=== PATIENT | male | born 1955 | race Caucasian/White ===

== ENCOUNTER 2017-10-17 07:30 | Inpatient (IN) ==
[2017-10-11 11:56] LABS: Appearance,Urine CLEAR; Bilirubin,Urine NEG (NEG); Color,Urine STRAW; Glucose,Urine (UA) NEGATIVE (NEG); Leukocyte Esterase,Urine NEG /uL (NEG); Protein,Urine NEG (NEG); Specific Gravity,Urine 1.008 (1.000-1.035); Urine Blood NEG mg/dL (<0.03); Urobilinogen,Urine NEG (NEG)
[2017-10-11 12:48] LABS: Basophils # (Auto) 0 K/mcL (0.0-0.3); Basophils % (Auto) 0.3 % (0.0-2.0); Eosinophils # (Auto) 0.2 K/mcL (0.0-0.7); Eosinophils % (Auto) 1.6 % (0.0-7.0); Granulocytes % (Auto) 36.4 % (38.0-78.0); Lymphocytes # (Auto) 5.6 K/mcL (1.5-4.8); Lymphocytes % (Auto) 57.4 % (15.5-49.0); Mean Cell Volume 93.7 fL (80.0-100.0); Mean Corpuscular HGB Conc 33.5 g/dL (31.0-36.0); Mean Corpuscular Hemoglobin 31.4 pg (26.0-34.0); Monocytes # (Auto) 0.4 K/mcL (0.1-0.9); Monocytes % (Auto) 4.3 % (1.0-12.0); Platelet Count 155 K/mcL (140-440); Red Cell Distribution Width 13.2 % (11.5-14.5)
[2017-10-11 13:35] LABS: Blood Urea Nitrogen 14 mg/dl (8-23)
[~2017-10-17 07:30] MED LIST: CELECOXIB 200 MG CAPSULE PO SCH; KETOROLAC 30 MG, ROPIVACAINE HCL/PF 49.5 ML, EPINEPHrine 0.5 MG, 0.9 % SODIUM CHLORIDE ... IV SCH; PREGABALIN 75 MG CAPSULE PO SCH; ceFAZolin 1 GM VIAL IV SCH; oxyCODONE 10 MG TAB.ER.12H PO SCH
[2017-10-17] MEDS ORDERED: ONDANSETRON 4 MG/2 ML VIAL IV ONE (10:15)
[2017-10-17] MEDS ORDERED: TRANEXAMIC ACID 1,000 MG/10 ML VIAL IV ONE (10:15)
[2017-10-17] MEDS ORDERED: PHENYLEPHRINE 10 MG/ML VIAL IV ONE (10:15)
[2017-10-17] MEDS ORDERED: ePHEDrine 50 MG/ML AMPUL IV ONE (10:15)
[2017-10-17] MEDS ORDERED: KETAMINE 100 MG/ML ML IV ONE (10:15)
[2017-10-17] MEDS ORDERED: DEXAMETHASONE 10 MG/ML VIAL IV ONE (10:15)
[2017-10-17] MEDS ORDERED: ROPIVACAINE HCL/PF 20 ML VIAL IJ ONE (10:15)
[2017-10-17] MEDS ORDERED: PROPOFOL 200 MG/20 ML VIAL IV ONE (10:15)
[2017-10-17] MEDS ORDERED: MIDAZOLAM 2 MG/2 ML VIAL IV ONE (10:15)
[2017-10-17] MEDS ORDERED: LIDOCAINE HCL/PF 100 MG/5 ML SYRINGE IV ONE (10:15)
[2017-10-17] MEDS ORDERED: PROMETHAZINE 25 MG/ML VIAL IV PRN (10:19)
[2017-10-17] MEDS ORDERED: IPRATROPIUM/ALBUTEROL 3 ML AMPUL.NEB NEB PRN (10:19)
[2017-10-17] MEDS ORDERED: NALOXONE HCL 0.4 MG/ML VIAL IV PRN (10:19)
[2017-10-17] MEDS ORDERED: fentaNYL 100 MCG/2 ML VIAL IV PRN (10:19)
[2017-10-17] MEDS ORDERED: METHOCARBAMOL 1,000 MG/10 ML VIAL IV PRN (10:19)
[2017-10-17] MEDS ORDERED: FLUMAZENIL 0.1 MG/ML ML IV PRN (10:19)
[2017-10-17] MEDS ORDERED: ACETAMINOPHEN 1,000 MG/100 ML BOTTLE IV ONE (10:19)
[2017-10-17] MEDS ORDERED: BENZOCAINE/MENTHOL 1 LOZENGE PO PRN ×2 (10:19→12:03)
[2017-10-17] MEDS ORDERED: LACTATED RINGERS 250 ML IV PRN (10:19)
[2017-10-17] MEDS ORDERED: MEPERIDINE 25 MG/ML SYRINGE IV PRN (10:19)
[2017-10-17] MEDS ORDERED: LACTATED RINGERS 1,000 ML IV SCH (10:30)
--- NOTE | 2017-10-17 12:01 | Brief Operative Note ---
Date of procedure: 10/17/17 Pre-op diagnosis: R knee osteoarthritis, retained ACL hardware Post-op diagnosis: same Procedure: Right robotic assisted total knee arthroplasty Hardware removal tibial screw Grafts/Implants: Yes ([place] Triathlon CR 6 femur, 6 tibia, 39 patella) Anesthesia: spinal, GLMA Findings: arthritis Complications: none Surgeon: Jose Alberto Moreno Roofing Applicator: Kunal Marie Estimated blood loss (cc): 30 Specimens Removed/Pathology: none sent Condition: stable Disposition: PACU
[2017-10-17] MEDS ORDERED: BISACODYL 10 MG SUPP.RECT PR PRN (12:03)
[2017-10-17] MEDS ORDERED: MAGNESIUM HYDROXIDE 30 ML ORAL.SUSP PO PRN (12:03)
[2017-10-17] MEDS ORDERED: POLYETHYLENE GLYCOL 3350 17 GM PACKET PO PRN (12:03)
[2017-10-17] MEDS ORDERED: TRANEXAMIC ACID 1,000 MG/10 ML VIAL IV SCH (12:03)
[2017-10-17] MEDS ORDERED: FLEETS ADULT ENEMA PR PRN (12:03)
[2017-10-17] MEDS ORDERED: ONDANSETRON 4 MG/2 ML VIAL IV PRN (12:03)
--- NOTE | 2017-10-17 13:13 | XRay Report ---
CLINICAL INFORMATION: Reason for Exam:Post-op total knee. COMPARISON: None. FINDINGS: Total knee prostheses is anatomically aligned no osseous normality. Soft tissues swelling as expected IMPRESSION: Negative Interpreted and Authenticated by: Dao Godinez 10/17/17
[2017-10-17] MEDS: 0.9 % SODIUM CHLORIDE 1,000 ML IV SCH (14:39)
[2017-10-17] MEDS: 0.9 % SODIUM CHLORIDE 10 ML SYRINGE IV SCH ×2 (16:39→21:07)
[2017-10-17] MEDS: KETOROLAC 30 MG/ML VIAL IV SCH ×2 (18:11→23:36)
[2017-10-17] MEDS: ceFAZolin 1 GM VIAL IV SCH (18:11)
[2017-10-17] MEDS ORDERED: SENNOSIDES 1 TABLET PO SCH (21:00)
[2017-10-17] MEDS ORDERED: ATENOLOL 50 MG TABLET PO SCH (21:00)
[2017-10-17] MEDS: HYDROcodone/APAP 10/325MG TABLET PO PRN (21:06)
[2017-10-17] MEDS: ASPIRIN 325 MG ENTERIC COATED TABLET PO SCH (21:07)
[2017-10-17] MEDS: DOCUSATE SODIUM 100 MG CAPSULE PO SCH (21:07)
[2017-10-18] MEDS: 0.9 % SODIUM CHLORIDE 1,000 ML IV SCH ×2 (00:24→09:38)
[2017-10-18] MEDS: ceFAZolin 1 GM VIAL IV SCH (01:22)
[2017-10-18] MEDS: KETOROLAC 30 MG/ML VIAL IV SCH (05:40)
[2017-10-18] MEDS: 0.9 % SODIUM CHLORIDE 10 ML SYRINGE IV SCH (05:41)
--- NOTE | 2017-10-18 07:36 | Discharge Summary ---
Providers - Providers Patient information: Note initiated : 10/18/17 at 7:34 am Service Date, if different from initiated Date: [] Patient: Adam Lopez 62 y/o M admitted on 10/17/17 for Total Knee Arthroplasty - Right Nathan. Chief Complaint: [] Discharge date: 10/18/17 Hospitalization Hospital course: Pt was admitted for R TKA; pt underwent the procedure on the day of admission and spent one night on the floor for IV pain meds, IV abx, and PT. Pt discharged post-op day 1 with ASA for DVT prophylaxis and out-pt PT orders. Will f/u at [facility] in 2 weeks. Discharge diagnosis: R knee OA Exam - Exam Clean and dry: Yes Weight bearing status: as tolerated Ortho Discharge - TKA - Patient Instructions Diet: Regular Diet Activity: activity as tolerated Total Knee Protocol: For Total Knee: Start ROM JARRDO with stationary bike or rocking chair. Work on gaining full extension of knee. Posterior dislocation precautions provided. Hip abductor strengthening and gait training instructions provided. Apply Cryocuff as instructed. Dressing Care: May shower in 2 days - Follow Up Plan Disposition: Home, Self-Care Prognosis: Good Rehab Potential: Good Overall status at discharge: patient is progressing back to baseline - Orders For Discharge Prescriptions: Aspirin [Ecotrin] 325 mg PO BID #30 tab.ec HYDROcodone/APAP 10/325MG [[place] 10-325Mg] 1 - 2 tab PO Q4HP PRN #90 tab PRN Reason: Pain Level 3-6 Pending Studies Resuscitation Status Full Code Diet Regular Diet Start SunOct 17 1206 Hydrocodone Bitart/Acetaminophen ([place] 10/325mg) 0 tab PO Q4HP PRN PRN Reason: PAIN LEVEL 3-6 Last Admin: 10/17/17 21:06 Dose: 2 tab Aspirin (Ecotrin) 325 mg PO BID [facility] Last Admin: 10/17/17 21:07 Dose: 325 mg Atenolol (Tenormin) 25 mg PO HS [facility] Last Admin: 10/17/17 21:06 Dose: 25 mg Docusate Sodium (Colace) 100 mg PO BID [facility] Last Admin: 10/17/17 21:07 Dose: 100 mg Sodium Chloride (Sodium Chloride 0.9%) 1,000 mls @ 100 mls/hr IV .Q10H [facility] Last Infusion: 10/18/17 01:00 Dose: 0 mls/hr Admin: 10/18/17 00:24 Dose: Not Given Admin: 10/17/17 14:39 Dose: 100 mls/hr Ketorolac Tromethamine (Toradol) 30 mg IV Q6 [facility] Stop: 10/19/17 12:01 Last Admin: 10/18/17 05:40 Dose: 30 mg Admin: 10/17/17 23:36 Dose: 30 mg Admin: 10/17/17 18:11 Dose: 30 mg Senna (Senokot) 2 tab PO HS [facility] Last Admin: 10/17/17 21:06 Dose: 2 tab Sodium Chloride (Saline Flush) 10 ml IV Q8 [facility] Last Admin: 10/18/17 05:41 Dose: 10 ml Admin: 10/17/17 21:07 Dose: Not Given Admin: 10/17/17 16:39 Dose: Not Given Shift Summary 10/18/17 03:45 Shift Summary by Ledy Hyatt Patient unable to sleep. States he slept during the day yesterday. Medicated for pain 6/10 with Hydrocodone 2 tabs x1 with good effect, 2/10 pain.IV on left hand saline locked. Ambulated to hallway using FWW last night with his 80 ft twice. Voids to the bathroom/urinal. Voided 300 mls PVR of 216 mls at 2351H. Right knee dressing CDI. VSS. Initialized on 10/18/17 03:45 - END OF NOTE
[2017-10-18] MEDS: ASPIRIN 325 MG ENTERIC COATED TABLET PO SCH (08:00)
[2017-10-18] MEDS: DOCUSATE SODIUM 100 MG CAPSULE PO SCH (08:00)
[2017-10-18] MEDS ORDERED: ATENOLOL 50 MG TABLET PO SCH (09:00)
[2017-10-18] MEDS ORDERED: HYDROCHLOROTHIAZIDE 12.5 MG CAPSULE PO SCH (09:00)
[2017-10-18] MEDS ORDERED: OLMESARTAN MEDOXOMIL 20 MG TABLET PO SCH (09:00)
[2017-10-18] MEDS: HYDROcodone/APAP 10/325MG TABLET PO PRN (09:34)
--- NOTE | 2017-10-18 09:58 | Operative Note ---
DATE OF OPERATION: 10/17/2017 PREOPERATIVE DIAGNOSIS: Right knee severe osteoarthritis with retained ACL tibial screw. POSTOPERATIVE DIAGNOSIS: Right knee severe osteoarthritis with retained ACL tibial screw. PROCEDURE PERFORMED: 1. Right robotic-assisted total knee arthroplasty using a [place] Triathlon size 6 cruciate retaining femoral component, size 6 tibial baseplate, 9 mm X3 tibial insert with a 39 mm patellar button. 2. Hardware removal of tibial ACL screw and sleeve. SURGEON: Jose Alberto Moreno M.D. TRAPEZE PERFORMER: Braden Marie PA-C. ANESTHESIA: Spinal plus general. DRAINS: None. SPECIMENS: Bone cuts and tibial screw and sleeve which were discarded. BLOOD LOSS: 30 mL. COMPLICATIONS: None. POSTOPERATIVE CONDITION: Stable. INDICATIONS FOR SURGERY: This is a 62-year-old male who has had remote history of anterior cruciate ligament reconstruction. He has had slowly progressive worsening pain over time. Radiographs showed severe [id number] osteoarthritis. FINDINGS AT SURGERY: As above. Post implantation showed good limb alignment, patellar tracking, and joint stability. PROCEDURE IN DETAIL: The patient had been seen preoperatively. Informed consent had been obtained after discussion of risks and benefits of surgery. Risks including, but not limited to, bleeding, possibly requiring transfusion; infection, possibly requiring implant removal, prolonged IV antibiotics; injury to nerves, blood vessels and other surrounding structures; anesthetic risks; incomplete or no resolution of symptoms; stiffness; pain; swelling; instability; DVT and pulmonary embolus risks; and the possibility of needing further revision surgery. He understood these risks and wished to proceed. Correct operative site was marked and then patient was taken to the operating room after spinal anesthesia was given. Right lower extremity was carefully prepped and draped in normal sterile fashion. A time-out was performed verifying patient name, operative site, and plan. Midline incision was made with a scalpel through skin and subcutaneous tissue and then Irrisept was irrigated. A medial parapatellar arthrotomy was made. Subperiosteal exposure was done of the anterior medial tibia and retropatellar fat pad was excised. The tibial ACL screw was removed with a screwdriver, and then the plastic sleeve was removed as well. We then placed our tibial and femoral check points. We made two stab incisions over the femur and two over the tibia and bicortical pins were placed and the arrays connected. We then checked our hip center of rotation as well as used the green probe to check our medial and lateral malleoli and double-check our checkpoints. We then used the blue probe to do our mapping. Once this was completed, we removed our osteophytes with a rongeur. We then checked our flexion- extension gaps. We ended up adjusting until we had 17 mm medial flexion- extension gap with a 16 lateral flexion gap and an 18 lateral in extension. We then used the robotic arm to make our bone cuts. Tibia was placed and externally rotated as bone coverage would allow. The tibia was prepared with the boss reamer and keel punch. We then elevated the femur and removed posterior osteophytes with a curved osteotome and curet. Femoral trial was placed and then peg holes were drilled. A 9 insert trial was placed. The knee was taken into extension. Patella was measured pre-resection at about 28 mm. We freehand resected down to 14 mm. A 39 was sized and holes were drilled. Trial was placed. We measured 26 mm with the trial. We did a limited lateral facetectomy and then checked our patellar tracking which was good. We checked our full extension. We were about 5 degrees short of full extension. We then opened implants. Trials were removed. A drill was used to drill some areas of sclerotic bone. We filled the joint with Irrisept, after a minute pulse lavaged with saline, and then used a CO2 gun to clean and dry the cancellous bone surfaces and then cemented the tibia followed by femur. Excess cement was removed. The 9 insert trial was placed. The knee was taken into extension, and the patellar button was cemented. Checkpoints were removed. We filled the joint with Irrisept and then injected pain cocktail into the pericapsular and subcutaneous tissues. We then removed our arrays and removed our tibial and femoral pins. Once cement had fully hardened, we pulse lavaged with saline and flexed the knee up. We removed the trial insert. A definitive insert was opened. We injected the posterior capsule with pain cocktail and then impacted the insert. The knee was then taken to about 45 degrees of flexion. Interrupted #2 FiberWire xvlyvn-vp-asasfh were used around the superior quadrant, interrupted #1 Vicryl ovycpq-ih-airzff were used around the inferior quadrant, running #1 Vicryl was used for patellar tendon and quad tendon. Final Irrisept irrigation was done, after a minute final pulse lavage, and then 2-0 Monocryl for subcutaneous and eliza for skin. Xeroform and sterile dressing were applied. Tourniquet was released and patient was awakened, extubated, and transferred to recovery in stable condition. SHAY:ernestina Job ID: [id number] Doc ID: [id number] Jose Alberto Moreno MD
== END 2017-10-18 11:05 | disposition home or self-care (01) | DRG 470 ==
LOC: MEDSUR 07:59
PROVIDERS: ADMIT Orthopaedic Surgery; ATTEND Orthopaedic Surgery

== ENCOUNTER 2018-11-27 04:57 | Inpatient (IN) ==
[2018-11-21 11:59] LABS: Appearance,Urine CLEAR; Bilirubin,Urine NEG (NEG); Color,Urine STRAW; Culture Indicated,Urine NO; Glucose,Urine (UA) NEGATIVE (NEG); Ketones,Urine NEG (NEG); Leukocyte Esterase,Urine NEG /uL (NEG); Nitrate,Urine NEG (NEG); Protein,Urine NEG (NEG); Specific Gravity,Urine 1.004 (1.000-1.035); Urine Blood NEG mg/dL (<0.03); Urobilinogen,Urine NEG (NEG)
[2018-11-21 12:50] LABS: Blood Urea Nitrogen 13 mg/dl (8-23); Calcium 9.3 mg/dl (8.6-10.4); Carbon Dioxide 23 mmol/L (22-30); Chloride 105 mmol/L (96-108); Glomerular Filtration Rate 79; Glucose 98 mg/dL (70-105)
[2018-11-21 12:54] LABS: Basophils # (Auto) 0 K/mcL (0.0-0.3); Basophils % (Auto) 0.2 % (0.0-2.0); Eosinophils # (Auto) 0.1 K/mcL (0.0-0.7); Eosinophils % (Auto) 0.7 % (0.0-7.0); Hematocrit 43.1 % (41.0-55.0); Hemoglobin 14.9 g/dL (13.5-16.5); Lymphocytes % (Auto) 72.2 % (15.5-49.0); Mean Cell Volume 92.7 fL (80.0-100.0); Mean Corpuscular HGB Conc 34.6 g/dL (31.0-36.0); Mean Platelet Volume 8.4 fL (7.4-10.4); Monocytes # (Auto) 0.7 K/mcL (0.1-0.9); Monocytes % (Auto) 4.9 % (1.0-12.0); Platelet Count 163 K/mcL (140-440); RBC 4.65 M/mcL (4.50-5.90); WBC 13.9 K/mcL (4.5-11.0)
[2018-11-21 14:06] LABS: INR 1.1 (0.9-1.1); Prothrombin Time 13.9 sec (11.9-14.5)
[2018-11-27] MEDS ORDERED: CELECOXIB 200 MG CAPSULE PO SCH (06:00)
[2018-11-27] MEDS ORDERED: ceFAZolin 2 GM in DEXTROSE 5% IN WATER 50 ML IV SCH (06:00)
[2018-11-27] MEDS ORDERED: PREGABALIN 75 MG CAPSULE PO SCH (06:00)
[2018-11-27] MEDS ORDERED: 0.9 % SODIUM CHLORIDE 9 ML, KETOROLAC 30 MG, ROPIVACAINE HCL/PF 49.5 ML, EPINEPHrine 0.... IJ SCH (06:00)
[2018-11-27] MEDS ORDERED: oxyCODONE 10 MG TAB.ER.12H PO SCH (06:00)
[2018-11-27] MEDS ORDERED: TRANEXAMIC ACID 1,000 MG/10 ML VIAL IV ONE (07:30)
[2018-11-27] MEDS ORDERED: KETAMINE 100 MG/ML ML IV ONE (07:30)
[2018-11-27] MEDS ORDERED: LIDOCAINE HCL/PF 100 MG/5 ML SYRINGE IV ONE (07:30)
[2018-11-27] MEDS ORDERED: PHENYLEPHRINE 10 MG/ML VIAL IV ONE (07:30)
[2018-11-27] MEDS ORDERED: ONDANSETRON 4 MG/2 ML VIAL IV ONE (07:30)
[2018-11-27] MEDS ORDERED: fentaNYL 100 MCG/2 ML VIAL IV ONE (07:30)
[2018-11-27] MEDS ORDERED: GLYCOPYRROLATE 0.2 MG/ML VIAL IV ONE (07:30)
[2018-11-27] MEDS ORDERED: ePHEDrine 50 MG/ML AMPUL IV ONE (07:30)
[2018-11-27] MEDS ORDERED: PROPOFOL 200 MG/20 ML VIAL IV ONE (07:30)
[2018-11-27] MEDS ORDERED: MIDAZOLAM 2 MG/2 ML VIAL IV ONE (07:30)
[2018-11-27] MEDS ORDERED: DEXAMETHASONE 10 MG/ML VIAL IV ONE (07:30)
[2018-11-27] MEDS ORDERED: IPRATROPIUM/ALBUTEROL 3 ML AMPUL.NEB NEB PRN (08:04)
[2018-11-27] MEDS ORDERED: FLUMAZENIL 0.1 MG/ML ML IV PRN (08:04)
[2018-11-27] MEDS ORDERED: fentaNYL 100 MCG/2 ML VIAL IV PRN (08:04)
[2018-11-27] MEDS ORDERED: NALOXONE HCL 0.4 MG/ML VIAL IV PRN (08:04)
[2018-11-27] MEDS ORDERED: BENZOCAINE/MENTHOL 1 LOZENGE PO PRN ×2 (08:04→09:19)
[2018-11-27] MEDS ORDERED: ONDANSETRON 4 MG/2 ML VIAL IV PRN ×2 (08:04→09:19)
[2018-11-27] MEDS ORDERED: LACTATED RINGERS 250 ML IV PRN (08:04)
[2018-11-27] MEDS ORDERED: METHOCARBAMOL 1,000 MG/10 ML VIAL IV PRN (08:04)
[2018-11-27] MEDS ORDERED: ACETAMINOPHEN 1,000 MG/100 ML BOTTLE IV ONE (08:04)
[2018-11-27] MEDS ORDERED: KETOROLAC 15 MG/ML VIAL IV PRN (08:04)
[2018-11-27] MEDS ORDERED: LACTATED RINGERS 1,000 ML IV SCH (08:15)
[2018-11-27] MEDS ORDERED: FLEETS ADULT ENEMA PR PRN (09:19)
[2018-11-27] MEDS ORDERED: MAGNESIUM HYDROXIDE 30 ML ORAL.SUSP PO PRN (09:19)
[2018-11-27] MEDS ORDERED: DEXTROSE 31 GM ORAL.SUSP PO PRN (09:19)
[2018-11-27] MEDS ORDERED: DEXTROSE 50% 50 ML VIAL IV PRN (09:19)
[2018-11-27] MEDS ORDERED: BISACODYL 10 MG SUPP.RECT PR PRN (09:19)
[2018-11-27] MEDS ORDERED: TRANEXAMIC ACID 1,000 MG/10 ML VIAL IV SCH (09:19)
[2018-11-27] MEDS ORDERED: POLYETHYLENE GLYCOL 3350 17 GM PACKET PO PRN (09:19)
--- NOTE | 2018-11-27 09:19 | Brief Operative Note ---
Date of procedure: 11/27/18 Pre-op diagnosis: L knee severe DJD Post-op diagnosis: same Procedure: Left robotic assisted total knee arthroplasty Grafts/Implants: Yes ([place] Triathlon CR 5 femur, 6 tibia, 11mm insert, 39 patella) Anesthesia: spinal, GLMA Findings: severe bone on bone arthritis Complications: none Surgeon: Jose Alberto Moreno Dredge Operator: Kunal Marie Estimated blood loss (cc): 30 Specimens Removed/Pathology: none sent Condition: stable Disposition: PACU
--- NOTE | 2018-11-27 10:11 | Operative Note ---
DATE OF OPERATION: 11/27/2018 PREOPERATIVE DIAGNOSIS: Left knee severe osteoarthritis. POSTOPERATIVE DIAGNOSIS: Left knee severe osteoarthritis. PROCEDURE PERFORMED: Left robotic-assisted total knee arthroplasty placing a [place] Triathlon size 5 cruciate retaining femoral component, size 6 tibial baseplate, an 11 mm X3 tibial insert with a 39 mm patellar button. SURGEON: Jose Alberto Moreno M.D. ACADEMIC COACH: Braden Marie PA-C. The PA's assistance was required for the safe and efficient completion of the entire case. This provider's expertise and technical skill were required throughout the case. The PA assisted with preoperative coordination, intraoperative retraction, wound closure, dressing and splint application, as well as postoperative documentation and care coordination. ANESTHESIA: Spinal plus general. DRAINS: None. SPECIMENS: Bone cuts which were discarded. BLOOD LOSS: 30 mL. COMPLICATIONS: None. POSTOPERATIVE CONDITION: Stable. INDICATIONS FOR SURGERY: This is a 63-year-old male who has had longstanding, progressive worsening knee pain. Radiographs showed severe qrey-[id number] osteoarthritis. FINDINGS AT SURGERY: He did have severe arthritis. Post implantation showed good limb alignment, patellar tracking, and joint stability. PROCEDURE IN DETAIL: The patient had been seen preoperatively and informed consent had been obtained after discussion of risks and benefits of surgery. Risks including, but not limited to, bleeding; infection, possibly requiring implant removal; prolonged IV antibiotics; injury to nerves, blood vessels, other surrounding structures; anesthetic risks; incomplete or no resolution of symptoms; stiffness; swelling; pain; clunking; instability; DVT and pulmonary embolus risks; and the possibility of needing further revision joint surgery. He understood and wished to proceed. Correct operative site was marked and then patient was taken to the operating room. Spinal anesthesia had been given. LMA general was then given, and the left lower extremity was carefully prepped and draped in normal sterile fashion. A time-out was performed verifying patient name, operative site, and plan. Esmarch was used to exsanguinate the extremity and tourniquet was inflated to 300 mmHg. All skin surfaces were covered with Ioban. A midline incision was made with a scalpel through skin and subcutaneous tissue. Irrisept was irrigated. A medial parapatellar arthrotomy was performed. Subperiosteal exposure was done of the anterior medial tibia. Irrisept was irrigated. Anterior horns of the menisci were removed and ACL was transected. The retropatellar fat pad was removed. Femoral and tibial checkpoints were placed. Two stab incisions were made over the femur and two over the tibia and bicortical pins placed and the arrays connected. The hip center of rotation was checked and then green probe used to identify medial and lateral malleoli, as well as double-check our checkpoints. Blue probe was used to do our mapping. We then removed osteophytes and then checked our flexion-extension gaps. We put 2 degrees of varus on the tibia and 3 on the femur. This gave us 17 mm gaps medial in both flexion and extension and lateral in flexion with a 19 mm gap in extension. We then checked our sizing. A size 6 ended up stuffing the patellofemoral joint, so we did downsize to a 5. We then went ahead and used the robotic arm to do our bone cuts. The tibia trial was placed and externally rotated as bone coverage would allow. This was a size 6. A boss reamer and keel punch were used to prepare and then a keeled tibial trial was placed. Femur was elevated, and a curved osteotome was used to remove posterior osteophytes with a curet. We then impacted the femoral trial, pinned this into place. Peg holes were drilled and a 9 insert placed. The knee was taken into extension. Patella measured 28 mm pre-resection and post-resection was 15 mm. We went ahead and sized to a 39 mm patellar button. This was medialized as much as possible and holes were drilled and then a trial placed. A lateral facetectomy was performed. We checked the patellar tracking, which was good, and so we went ahead and removed trial implants. Definitive implants were opened. We irrigated Irrisept while antibiotic cement was mixed. After a minute we pulse lavaged with saline and then a CO2 gun was used to clean and dry the cancellous bone surface. We cemented the tibia. Excess cement was removed. We cemented the femur and the excess cement was removed. A 9 insert trial was placed and the knee was taken into extension, and we cemented the patellar button. Extension checked all the way down to 0, so we went ahead and removed checkpoints. We filled the joint with Irrisept. We removed arrays and pins. After cement had fully hardened, we flexed the knee up, removed the insert trial and injected pain cocktail into the pericapsular and subcutaneous tissues. Irrisept was irrigated on the tray and then we opened an 11 mm insert. This was impacted. We then pulse lavaged the joint copiously with saline. The knee was placed in about 45 degrees of flexion. Interrupted #2 FiberWire bgdent-zy-sokcfd were used around the patella, interrupted #1 Vicryl nbmtuo-ex-yxseyp around the inferior quadrant, and running #1 Vicryl was used for patellar tendon and quad tendon. Final Irrisept irrigation was done and then 2-0 Monocryl used for subcutaneous and eliza for skin. Xeroform and sterile dressing were applied. Tourniquet was released. The patient was awakened, extubated, and transferred to recovery in stable condition. BJB:ernestina Job ID: [id number] Doc ID: [id number] Jose Alberto Moreno MD
--- NOTE | 2018-11-27 10:26 | XRay Report ---
CLINICAL INFORMATION: Post-op total knee COMPARISON: None. FINDINGS: Total knee prostheses is anatomically aligned. No osseous abnormality. Periarticular gas and soft tissue swelling seen - as expected. IMPRESSION: Negative Interpreted and Authenticated by: Dao Godinez 11/27/18
[2018-11-27] MEDS: 0.9 % SODIUM CHLORIDE 1,000 ML IV SCH ×2 (11:27→18:05)
[2018-11-27] MEDS: INSULIN LISPRO 1 UNIT/0.01 ML UNIT SQ SCH ×3 (11:28→21:39)
[2018-11-27] MEDS: KETOROLAC 30 MG/ML VIAL IV SCH ×3 (11:30→23:45)
[2018-11-27] MEDS: HYDROcodone/APAP 10/325MG TABLET PO PRN ×3 (12:50→21:05)
[2018-11-27] MEDS: HYDROmorphone 2 MG/ML VIAL IV PRN ×3 (12:58→16:52)
[2018-11-27] MEDS: 0.9 % SODIUM CHLORIDE 10 ML SYRINGE IV SCH ×2 (13:07→22:32)
[2018-11-27] MEDS: ceFAZolin 1 GM VIAL IV SCH ×2 (15:09→22:32)
[2018-11-27] MEDS: DOCUSATE SODIUM 100 MG CAPSULE PO SCH (20:57)
[2018-11-27] MEDS: ASPIRIN 81 MG TAB.CHEW PO SCH (20:57)
[2018-11-27] MEDS ORDERED: SENNOSIDES 1 TABLET PO SCH (21:00)
[2018-11-28] MEDS: HYDROcodone/APAP 10/325MG TABLET PO PRN ×2 (03:50→09:14)
[2018-11-28] MEDS: 0.9 % SODIUM CHLORIDE 10 ML SYRINGE IV SCH (05:30)
[2018-11-28] MEDS: KETOROLAC 30 MG/ML VIAL IV SCH (05:30)
[2018-11-28] MEDS: INSULIN LISPRO 1 UNIT/0.01 ML UNIT SQ SCH (07:03)
--- NOTE | 2018-11-28 07:03 | Discharge Summary ---
Providers - Providers Patient information: Note initiated : 11/28/18 at 7:01 am Service Date, if different from initiated Date: [] Patient: Adam Lopez 63 y/o M admitted on 11/27/18 for Left Total Knee Arthroplasty Nathan . Chief Complaint: [] Discharge date: 11/28/18 Hospitalization Hospital course: Pt was admitted for a L TKA. Pt admitted on the day of admission. Pt spent one night on the floor for IV abx, IV pain meds and PT. Discharged on post-op day 1. Will take ASA 81mg bid for DVT prophylaxis. F/u in 2 weeks. Discharge diagnosis: L knee OA Exam - Exam Clean and dry: No (mild bloody drainage) Weight bearing status: as tolerated Ortho Discharge - TKA - Patient Instructions Diet: Regular Diet Activity: activity as tolerated Total Knee Protocol: For Total Knee: Start ROM JARROD with stationary bike or rocking chair. Work on gaining full extension of knee. Posterior dislocation precautions provided. Hip abductor strengthening and gait training instructions provided. Apply Cryocuff as instructed. Dressing Care: May shower in 2 days - Follow Up Plan Disposition: Home, Self-Care Prognosis: Good Rehab Potential: Good Overall status at discharge: patient is back to baseline - Orders For Discharge Prescriptions: Aspirin 81 mg PO BID #30 tab.chew HYDROcodone/APAP 10/325MG [[place] 10-325Mg] 1 - 2 tab PO Q4HP PRN #90 tab PRN Reason: Pain Level 3-6 Pending Studies Resuscitation Status Full Code Diet Regular Diet Start SunNov 27 920 Hydrocodone Bitart/Acetaminophen ([place] 10/325mg) 0 tab PO Q4HP PRN PRN Reason: PAIN LEVEL 3-6 Last Admin: 11/28/18 03:50 Dose: 2 tab Documented by: Admin: 11/27/18 21:05 Dose: 2 tab Documented by: Admin: 11/27/18 16:59 Dose: 2 tab Documented by: Admin: 11/27/18 12:50 Dose: 2 tab Documented by: ELY Aspirin (Aspirin) 81 mg PO BID [facility] Last Admin: 11/27/18 20:57 Dose: 81 mg Documented by: MITCHEL Diagnostic Test (Pha) (Accu-Chek) 1 each FS ACHS [facility] Last Admin: 11/27/18 21:38 Dose: Not Given Documented by: Admin: 11/27/18 17:02 Dose: 1 each Documented by: Admin: 11/27/18 11:27 Dose: 1 each Documented by: ELY Docusate Sodium (Colace) 100 mg PO BID [facility] Last Admin: 11/27/18 20:57 Dose: 100 mg Documented by: MITCHEL Hydromorphone HCl (Dilaudid) 0 mg IV Q2HP PRN PRN Reason: PAIN LEVEL > 6 Last Admin: 11/27/18 16:52 Dose: 1 mg Documented by: Admin: 11/27/18 15:07 Dose: 1 mg Documented by: Admin: 11/27/18 12:58 Dose: 1 mg Documented by: ELY Insulin Human Lispro (Humalog) 0 unit SQ ACHS [facility]; Protocol Last Admin: 11/27/18 21:39 Dose: Not Given Documented by: Admin: 11/27/18 17:02 Dose: Not Given Documented by: Admin: 11/27/18 11:28 Dose: Not Given Documented by: ELY Ketorolac Tromethamine (Toradol) 30 mg IV Q6 [facility] Stop: 11/29/18 06:01 Last Admin: 11/28/18 05:30 Dose: 30 mg Documented by: Admin: 11/27/18 23:45 Dose: 30 mg Documented by: Admin: 11/27/18 16:53 Dose: 30 mg Documented by: Admin: 11/27/18 11:30 Dose: 30 mg Documented by: ELY Senna (Senokot) 2 tab PO HS [facility] Last Admin: 11/27/18 20:57 Dose: 2 tab Documented by: MITCHEL Sodium Chloride (Saline Flush) 10 ml IV Q8 [facility] Last Admin: 11/28/18 05:30 Dose: 10 ml Documented by: Admin: 11/27/18 22:32 Dose: 10 ml Documented by: Admin: 11/27/18 13:07 Dose: 10 ml Documented by: ELY Shift Summary 11/28/18 02:43 Shift Summary by Miranda Lilly A&O x4. Pt has bleeding through dressing. Pt ambulated halls and in room due to difficulty voiding. Pt voiding per urinal. Noncompliant with use to call light - but has been steady on feet. Pain has been better controlled this shift. Using [place] 2 tabs for pain control. IV SL to R forearm. Pt given scheduled toradol as well. No complaints of nausea. Up with SBA and FWW. Initialized on 11/28/18 02:43 - END OF NOTE
[2018-11-28] MEDS ORDERED: OLMESARTAN MEDOXOMIL 20 MG TABLET PO SCH (09:00)
[2018-11-28] MEDS ORDERED: ATENOLOL 50 MG TABLET PO SCH (09:00)
[2018-11-28] MEDS ORDERED: MULTIVIT,THER IRON,CA,FA & MIN 1 TABLET PO SCH (09:00)
[2018-11-28] MEDS: DOCUSATE SODIUM 100 MG CAPSULE PO SCH (09:15)
[2018-11-28] MEDS: ASPIRIN 81 MG TAB.CHEW PO SCH (09:16)
== END 2018-11-28 10:05 | disposition home or self-care (01) | DRG 470 ==
LOC: MEDSUR 04:57
PROVIDERS: ADMIT Orthopaedic Surgery; ATTEND Orthopaedic Surgery